=== PATIENT | male | born 1980 | race Caucasian/White ===

== ENCOUNTER 2016-11-10 02:15 | Emergency (ER) | payer OTHER ==
[2016-11-10 02:36] VITALS: BP 124/93; PULSE 80; TEMP 97.4; BMI 25.7
--- NOTE | 2016-11-10 02:48 | PDOC ---
History of Present Illness - General Chief Complaint: Pain, Acute Stated Complaint: ABDOMINAL PAIN Time Seen by Provider: 11/10/16 02:22 History Source: Patient Exam Limitations: No Limitations - History of Present Illness Travel History: No Initial Comments: 11/10/16 04:44 36-year-old male with no medical history presents to the emergency department complaining of 4/10 dull nonradiating intermittent periumbilical discomfort without nausea/vomiting, fever/chills, chest pain, shortness of breath, or urinary symptoms. Patient states he noticed his umbilicus swelling over the past 5 days. There are no alleviating or exacerbating factors. Pt says he has intermittent flank aches for years. Timing/Duration: reports: intermittent Quality: reports: mild Abdominal Pain Onset Location: reports: periumbilical Pain Radiation: reports: no radiation Past History - Past Medical History Allergies/Adverse Reactions: Allergies Allergy/AdvReac Type Severity Reaction Status Date / Time No Known Allergies Allergy Verified 11/10/16 02:28 Home Medications: Ambulatory Orders NK [No Known Home Medication] 11/10/16 Asthma: Yes GI Disorders: Yes (gastritis/ H pylori) Kidney Stones: Yes Suicide Attempt (Hx): No - Immunization History Immunization Up to Date: Yes - Psycho/Social/Smoking Cessation Hx Anxiety: No Suicidal Ideation: No Smoking Status: No Smoking History: Never smoked Have you smoked in the past 12 months: No Number of Cigarettes Smoked Daily: 0 Information on smoking cessation initiated: No Hx Alcohol Use: No Drug/Substance Use Hx: No Substance Use Type: None Review of Systems - Review of Systems Able to Perform ROS?: Yes Comments:: 11/10/16 04:45 CONSTITUTIONAL: Absent: fever, chills, diaphoresis, generalized weakness, malaise, loss of appetite HEENT: Absent: rhinorrhea, nasal congestion, throat pain, throat swelling, difficulty swallowing, mouth swelling, ear pain, eye pain, visual Changes CARDIOVASCULAR: Absent: chest pain, loss of consciousness, palpitations, irregular heart rate, peripheral edema RESPIRATORY: Absent: cough, shortness of breath, dyspnea with exertion, orthopnea, wheezing, stridor, hemoptysis GASTROINTESTINAL: +periumbilical pain Absent: abdominal distension, nausea, vomiting, diarrhea, constipation, melena, hematochezia GENITOURINARY: Absent: dysuria, frequency, urgency, hesitancy, hematuria, flank pain, genital pain MUSCULOSKELETAL: Absent: myalgia, arthralgia, joint swelling SKIN: Absent: rash, itching, pallor HEMATOLOGIC/IMMUNOLOGIC: Absent: easy bleeding, easy bruising, lymphadenopathy, frequent infections ENDOCRINE: Absent: unexplained weight gain, unexplained weight loss, heat intolerance, cold intolerance NEUROLOGIC: Absent: headache, focal weakness or paresthesias, dizziness, unsteady gait, seizure, mental status changes, bladder or bowel incontinence PSYCHIATRIC: Absent: anxiety, depression, suicidal or homicidal ideation, hallucinations. Is the patient limited Vietnamese proficient: No *Physical Exam - Vital Signs Last Vital Signs Temp Pulse Resp BP Pulse Ox 97.4 F L 80 20 124/93 100 11/10/16 02:29 11/10/16 02:29 11/10/16 02:29 11/10/16 02:11/10/16 02:29 - Physical Exam Comments: 11/10/16 04:45 GENERAL: Well developed, well nourished. Awake and alert. No acute distress. HEENT: Normocephalic, atraumatic. PERRLA, EOMI. No conjunctival pallor. Sclera are non- icteric. Moist mucous membranes. Oropharynx is clear. NECK: Supple. Full ROM. No JVD. Carotid pulses 2+ and symmetric, without bruits. No thyromegaly. No lymphadenopathy. CARDIOVASCULAR: Regular rate and rhythm. No murmurs, rubs, or gallops. Distal pulses are 2+ and symmetric. PULMONARY: No evidence of respiratory distress. Lungs clear to auscultation bilaterally. No wheezing, rales or rhonchi. ABDOMINAL: Umbilical hernia Soft. Non-tender. Non-distended. No rebound or guarding. No organomegaly. Normoactive bowel sounds. MUSCULOSKELETAL Normal range of motion at all joints. No bony deformities or tenderness. No CVA tenderness. EXTREMITIES: No cyanosis. No clubbing. No edema. No calf tenderness. SKIN: Warm and dry. Normal capillary refill. No rashes. No jaundice. NEUROLOGICAL: Alert, awake, appropriate. Cranial nerves 2-12 intact. No deficits to light touch and temperature in face, upper extremities and lower extremities. No motor deficits in the in face, upper extremities and lower extremities. Normoreflexic in the upper and lower extremities. Normal speech. Toes are down- going bilaterally. Gait is normal without ataxia. PSYCHIATRIC: Cooperative. Good eye contact. Appropriate mood and affect. ED Treatment Course - LABORATORY CBC & Chemistry Diagram: 11/10/16 03:20 11/10/16 03:20 - RADIOLOGY Radiograph Interpretation: 11/10/16 05:51 The CAT scan of the abdomen and pelvis with by mouth and IV contrast. His vital got there is no free peritoneal air. There is a small umbilical hernia containing omental fat. There is no herniated bowel. Attenuation of the herniated fat appears normal. Bilateral nephro lithiasis *DC/Admit/Observation/Transfer Diagnosis at time of Disposition: Umbilical hernia without obstruction and without gangrene, Nephrolithiasis Abdominal pain Qualifiers: Abdominal location: periumbilical Qualified Code(s): R10.33 - Periumbilical pain - Discharge Dispostion Disposition: HOME Condition at time of disposition: Stable Admit: No - Referrals Referrals: Salas Perdue MD [Staff Physician] - Ozzie Magallon MD, MD [Primary Care Provider] - Giovanny Zamora MD [Staff Physician] - - Patient Instructions Printed Discharge Instructions: Abdominal Hernia, Kidney Stones -- Adult Additional Instructions: Follow up with the surgeon adn urologist listed on your discharge Return to the ER for severe/persistent/worsening symptoms or difficulty with bowel movements
[2016-11-10] MEDS ORDERED: SODIUM CHLORIDE 1,000 ML IV STA (02:49)
[2016-11-10 03:36] LABS: BASOPHIL 0.7 % (0-2.0); EOSINOPHIL 8.2 % (0-4.5); MCH 28.4 pg (25.7-33.7); MEAN PLT VOLUME 8.4 fl (7.5-11.1); NEUTROPHILS 60.2 % (42.8-82.8); PLATELET COUNT 201 K/MM3 (134-434); RDW 13.4 % (11.9-15.9); WHITE BLOOD COUNT 10.7 K/mm3 (4.0-10.0)
[2016-11-10 04:09] LABS: ALBUMIN 3.9 g/dl (3.4-5.0); ALK PHOS 91 U/L (45-117); ANION GAP 9 (8-16); BILIRUBIN,TOTAL 0.2 mg/dL (0.2-1.0); CALCIUM 9.2 mg/dL (8.5-10.1); CO2 28 mmol/L (21-32); CREATININE 0.9 mg/dL (0.7-1.3); GLUCOSE,RANDOM 89 mg/dL (74-106); SGOT/AST 18 U/L (15-37); SGPT/ALT 20 U/L (12-78)
== END 2016-11-10 06:00 | disposition home or self-care (01) ==
LOC: JER 02:15
PROC: 3E0337Z Introduction of Electrolytic and Water Balance Substance into Peripheral Vein, Percutaneous Approach (ICD-10-PCS; principal; 2016-11-10)
DX: K42.9 Umbilical hernia without obstruction or gangrene (principal)
CPT/HCPCS: 36415; 74177-TC; 80053; 85025; 99283-25; Q9967